=== PATIENT | female | born 1995 | race Caucasian/White ===

== ENCOUNTER 2023-05-27 09:44 | Inpatient (IN) | payer OTHER ==
[~2023-05-27] VITALS: Ht 165.1 cm; Wt 97.5 kg
[2023-05-27] MEDS ORDERED: PRENATAL TABLE1 EAC1 PO (10:27)
[2023-05-27] MEDS ORDERED: ADULT LOW DOSE81 M1 PO (10:28)
[2023-05-27 11:08] LABS: HEMATOCRIT 34.8 % (36.0-45.00); HEMOGLOBIN 12.1 g/dL (12.0-15.00); MEAN CELL VOLUME 83.4 fL (80.00-100.00); MEAN CORPUSCULAR HEMOGLOBIN 28.9 pg (27.00-32.0); MEAN CORPUSCULAR HGB CONC 34.7 g/dl (32.0-36.0); PLATELET COUNT 271 K/uL (150-450); RED BLOOD COUNT 4.17 M/uL (4.00-6.00); RED CELL DISTRIBUTION WIDTH 13.9 % (11.5-14.5)
[2023-05-27 11:43] LABS: INR 0.96; PARTIAL THROMBOPLASTIN TIME 30.9 SECONDS (22.0-34.0); PROTHROMBIN TIME 10.1 SECONDS (9.0-11.5)
[2023-05-27] MEDS ORDERED: OXYTOCIN 20 UNITS/500ML RL PIGGYBAG IV SCH (13:00)
[2023-05-27 13:58] LABS: PH,URINE 6.5 (5.0-8.0); URINE APPEARANCE Cloudy; URINE BILIRRUBIN Negative (NEGATIVE); URINE BLOOD Negative; URINE COLOR Dark Yellow; URINE GLUCOSE Negative (NEGATIVE); URINE LEUKOCYTE Small; URINE NITRATE Negative; URINE PROTEIN Trace (NEGATIVE)
[2023-05-27 14:02] LABS: URINE BACTERIA 1679.5 uL (0.0-1933); URINE EPITHELIAL CELLS 55.3 uL (0.0-38.8); URINE RBC 6.3 uL (0.0-20.8); URINE WBC 80.2 uL (0.0-23.2)
[2023-05-27] MEDS ORDERED: PROMETHAZINE HCL 25 MG/ML AMPUL IV STA (16:17)
[2023-05-27] MEDS ORDERED: MEPERIDINE HCL/PF 50 MG/ML VIAL IV STA (16:17)
[2023-05-27] MEDS ORDERED: PROMETHAZINE HCL 25 MG/ML AMPUL ONE (16:17)
[2023-05-27] MEDS ORDERED: CHLORHEXIDINE GLUCONATE 120 ML BOTTLE TOP ONE (16:51)
[2023-05-27] MEDS ORDERED: ERYTHROMYCIN BASE 1 GM TUBE OP ONE (16:51)
[2023-05-27] MEDS ORDERED: OXYTOCIN 20 UNITS/1000ML RL PIGGYBAG IV ONE (16:51)
[2023-05-27] MEDS ORDERED: ERYTHROMYCIN BASE 1 GM TUBE OP SCH (22:15)
[2023-05-27] MEDS ORDERED: OXYTOCIN 1,000 ML IV SCH (22:15)
[2023-05-27] MEDS ORDERED: CHLORHEXIDINE GLUCONATE 120 ML BOTTLE TOP SCH (22:15)
[2023-05-27] MEDS ORDERED: ACETAMINOPHEN 500 MG GEL..CAP PO PRN (22:15)
[2023-05-27] MEDS ORDERED: LIDOCAINE HCL 1% 200MG/20ML VIAL IJ SCH (22:15)
[2023-05-27 23:14] LABS: HEMATOCRIT 38.4 % (36.0-45.00); HEMOGLOBIN 13.3 g/dL (12.0-15.00); MEAN CELL VOLUME 84.4 fL (80.00-100.00); MEAN CORPUSCULAR HEMOGLOBIN 29.2 pg (27.00-32.0); MEAN CORPUSCULAR HGB CONC 34.6 g/dl (32.0-36.0); PLATELET COUNT 271 K/uL (150-450); RED BLOOD COUNT 4.55 M/uL (4.00-6.00); RED CELL DISTRIBUTION WIDTH 13.9 % (11.5-14.5)
[2023-05-28] MEDS ORDERED: PNV,CALCIUM 72/IRON/FOLIC ACID 1 TAB TABLET PO SCH (09:00)
== END 2023-05-29 12:31 | disposition home or self-care (01) | DRG 807 ==
LOC: OB/GYN 09:44 → LDR 09:44 → OB/GYN 19:23
PROVIDERS: ADMIT Obstetrics & Gynecology; ATTEND Obstetrics & Gynecology
PROC: 10E0XZZ Delivery of Products of Conception, External Approach (ICD-10-PCS; principal; 2023-05-27)
PROC: 0KQM0ZZ Repair Perineum Muscle, Open Approach (ICD-10-PCS; 2023-05-27)
PROC: 4A1HXCZ Monitoring of Products of Conception, Cardiac Rate, External Approach (ICD-10-PCS; 2023-05-27)
DX: O70.1 Second degree perineal laceration during delivery (principal); Z37.0 Single live birth; Z3A.39 39 weeks gestation of pregnancy; Z20.822 Contact with and (suspected) exposure to COVID-19